=== PATIENT | male | born 1965 | race Caucasian/White ===

== ENCOUNTER 2021-01-28 06:31 | Emergency (ER) | payer OTHER ==
[~2021-01-28] VITALS: Ht 182.9 cm; Wt 115.0 kg
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
[2021-01-28] MEDS ORDERED: PROMETHAZINE 25 MG/ML, 1ML ONE (06:47)
[2021-01-28] MEDS ORDERED: HYDROmorphone 1 MG/ML, 1ML INJ ONE (06:48)
--- NOTE | 2021-01-28 06:56 | NUR ---
PT REPORT FROM EUGENE VALLEJO
--- NOTE | 2021-01-28 06:56 | NUR ---
PT OFF THE FLOOR TO XRAY.
[2021-01-28] MEDS ORDERED: HYDROmorphone 1 MG/ML, 1ML INJ IM PRN (07:00)
[2021-01-28] MEDS ORDERED: PROMETHAZINE 25 MG/ML, 1ML IM ONE (07:00)
--- NOTE | 2021-01-28 07:42 | NUR ---
dr de dios spoke with dr norton
[2021-01-28 08:28] VITALS: BP 133/73
--- NOTE | 2021-01-28 08:53 | NUR ---
PT REC'VD DISCHARGE INSTRUCTIONS AND EDUCATION. PT HAD NO FURTHER QUESTIONS. PT, ON CRUTCHES TO DC AREA WITH IMMOBILIZER IN PLACE.
== END 2021-01-28 08:55 | disposition home or self-care (01) ==
LOC: ED 06:51
DX: S82.102A Unspecified fracture of upper end of left tibia, initial encounter for closed fracture (principal); S82.402A Unspecified fracture of shaft of left fibula, initial encounter for closed fracture; Z88.8 Allergy status to other drugs, medicaments and biological substances; V19.9XXA Pedal cyclist (driver) (passenger) injured in unspecified traffic accident, initial encounter; Y93.89 Activity, other specified; Y92.89 Other specified places as the place of occurrence of the external cause; Y99.8 Other external cause status
CPT/HCPCS: 29505; 73564; 96372; 99284; J1170; J2550

== ENCOUNTER → 2021-03-02 | Outpatient (CLI) | payer OTHER | END | disposition home or self-care (01) | LOC: CFH 08:01 | PROVIDERS: ATTEND Orthopaedic Surgery | DX: S82.102A Unspecified fracture of upper end of left tibia, initial encounter for closed fracture (principal); M25.562 Pain in left knee; X58.XXXA Exposure to other specified factors, initial encounter; Y93.9 Activity, unspecified; Y92.89 Other specified places as the place of occurrence of the external cause; Y99.8 Other external cause status ==